=== PATIENT | male | born 1995 | race Caucasian/White ===

== ENCOUNTER 2021-04-22 10:01 | Emergency (ER) | payer SELFPAY ==
[~2021-04-22] VITALS: Ht 177.8 cm; Wt 79.4 kg
[~2021-04-22 10:01] MED LIST: ALBUTEROL SULF8.5 GM INH; CEPHALEXIN500 MG PO; DAYQUIL; KEFLEX500 MG PO; NAPROSYN500 MG PO; NORCO 5-325 TA1 EACH PO; PENICILLIN V P500 MG PO; PROVENTIL HFA6.7 GM INH; QVAR7.3 G1 INH; ZITHROMAX250 MG PO; ZYRTEC10 MG PO
[2021-04-22] MEDS ORDERED: HYDROCODON-ACE1 EA10 PO (13:21)
[2021-04-22] MEDS ORDERED: CLEOCIN HCL300 MG PO (13:21)
== END 2021-04-22 13:31 | disposition home or self-care (01) ==
LOC: ED 10:01
DX: K04.7 Periapical abscess without sinus (principal); F17.200 Nicotine dependence, unspecified, uncomplicated; J45.909 Unspecified asthma, uncomplicated
CPT/HCPCS: 80048; 85025; 96365; 96375; 99283-25; J1100; J1885